=== PATIENT | male | born 1970 | race Caucasian/White ===

== ENCOUNTER 2017-02-07 17:40 | Outpatient (CLI) | payer OTHER | END 2017-02-07 17:41 | disposition home or self-care (01) | LOC: EMS 17:40 | PROVIDERS: ATTEND Surgery | DX: T75.1XXA Unspecified effects of drowning and nonfatal submersion, initial encounter (principal); V91.83XA Other injury due to other accident to other powered watercraft, initial encounter | CPT/HCPCS: A0425; A0433 ==